=== PATIENT | male | born 1995 | race Caucasian/White ===

== ENCOUNTER → 2016-11-09 | Outpatient (CLI) | payer OTHER ==
[~2016-11-09] VITALS: Ht 182.9 cm; Wt 113.4 kg
[2016-11-09 10:30] VITALS: BP 128/80
--- NOTE | 2016-11-09 10:34 | Progress Note-Pre Operative ---
Pre-Operative Progress Note H&P Reviewed The H&P was reviewed, patient examined and no changes noted. Date H&P Reviewed: November 09, 2016 Time H&P Reviewed: 10:20 Pre-Operative Diagnosis: Right Thyroid NOdule HOWIE COLE MD November 09, 2016 10:34 am
--- NOTE | 2016-11-09 10:35 | Progress Note-Post Operative ---
Post-Operative Progess Note Surgeon (s)/Senior Engineering Associate (s) Surgeon HOWIE COLE MD Senior Engineering Associate n/a Pre-Operative Diagnosis Right Thyroid NOdule Post-Operative Diagnosis same Post-Op Procedure Note Date of Procedure: November 09, 2016 Name of Procedure Performed: US guided FNA of Right Thyroid NOdule Description & Findings Description and Findings: n/a Anesthesia Type local Estimated Blood Loss minimal Packing none. Specimen(s) collected/removed slides and cytology to patholgy HOWIE COLE MD November 09, 2016 10:35 am
[2016-11-09 10:46] VITALS: BP 122/80
--- NOTE | 2016-11-09 12:08 | Diagnostic Imaging Report ---
EXAMINATION: Dedicated thyroid ultrasound performed with ultrasound guidance provided for FNA performed by Dr. Butler. Indication: Thyroid nodule FINDINGS: Ultrasound images demonstrate a right thyroid heterogenous solid thyroid nodule. IMPRESSION: Ultrasound guidance provided for right thyroid nodule FNA. Dictated by: Dictated on workstation # [id number]
== END ==
LOC: RAD 10:15
PROVIDERS: ATTEND Otolaryngology Otolaryngology/Facial Plastic Surgery
DX: C73 Malignant neoplasm of thyroid gland (principal)
CPT/HCPCS: 76942; 88305